=== PATIENT | female | born 1960 | race Caucasian/White ===

== ENCOUNTER 2019-05-05 14:11 | Outpatient (CLI) | payer MEDICARE, OTHER, SELFPAY ==
--- NOTE | 2019-05-05 14:20 | XR_ITS ---
WS: [id number] Bone mineral density performed on a [employer], today. Clinical data: POST MENOPAUSAL OSTEOPOROSIS Comparison study: DEXA scan, 06/08/2014. Findings: The first 4 lumbar vertebral bodies demonstrated the bone mineral density of 1.136 g/cm2 for a young adult T score of -0.4. Measurement of the left hip reveals a bone mineral density of 1.103 g/cm2 with a young adult T score of 0.8. Measurement of the right hip reveals the bone mineral density of 1.048 g/cm2 for young adult T score of 0.3. XR/XR DEXA axial skeleton* [id number] Impression: 1. Normal bone mineral density of the lumbar spine and both hips. 2. Slight decrease in mineralization compared to prior study.
== END 2019-05-05 14:12 | disposition home or self-care (01) ==
LOC: RADWPI 14:18
PROVIDERS: Family Provider Nurse Practitioner; PCP Nurse Practitioner; Referring Provider Nurse Practitioner; Visit Provider Internal Medicine Rheumatology
DX: M81.0 Age-related osteoporosis without current pathological fracture (principal)
CPT/HCPCS: 77080

== ENCOUNTER → 2019-05-11 13:38 | Outpatient (BNVA) | payer MEDICARE, OTHER, SELFPAY | PROVIDERS: Family Provider Nurse Practitioner; PCP Nurse Practitioner; Visit Provider Internal Medicine Rheumatology | DX: M35.3 Polymyalgia rheumatica (principal); Z79.899 Other long term (current) drug therapy; M79.7 Fibromyalgia; M15.4 Erosive (osteo)arthritis; G56.01 Carpal tunnel syndrome, right upper limb; Z79.52 Long term (current) use of systemic steroids | CPT/HCPCS: 36415; 82565; 85025; 85651; 86140; 99213 ==

== ENCOUNTER → 2019-05-27 14:34 | Outpatient (BNVA) | payer MEDICARE, OTHER, SELFPAY | PROVIDERS: Family Provider Nurse Practitioner; PCP Nurse Practitioner; Visit Provider Internal Medicine Rheumatology | DX: M35.3 Polymyalgia rheumatica (principal); Z79.899 Other long term (current) drug therapy | CPT/HCPCS: 85025 ==

== ENCOUNTER 2019-07-09 09:37 | Outpatient (CLI) | payer MEDICARE, OTHER, SELFPAY ==
--- NOTE | 2019-07-09 09:43 | MM_ITS ---
WS: [id number] BILATERAL SCREENING DIGITAL MAMMOGRAM WITH CAD HISTORY: SCREENING COMPARISON: 06/10/2018 and 05/02/2017 Bilateral CC and MLO views submitted. Computer aided detection analyzed. Breast composition: There are scattered areas of fibroglandular density. No suspicious masses, microc alcifications or architectural distortion. Benign calcifications in each breast. MM/[place] [id number] IMPRESSION: BI-RADS: 2-Benign FOLLOW UP: 1 Year Follow-up
== END 2019-07-09 09:38 | disposition home or self-care (01) ==
LOC: RADSHAW 09:39
PROVIDERS: Family Provider Nurse Practitioner; PCP Nurse Practitioner; Visit Provider Nurse Practitioner
DX: Z12.31 Encounter for screening mammogram for malignant neoplasm of breast (principal)
CPT/HCPCS: 77067

== ENCOUNTER 2019-10-27 13:00 | Outpatient (CLI) | payer MEDICARE, OTHER, SELFPAY ==
--- NOTE | 2019-10-27 13:23 | XR_ITS ---
WS: [id number] RIGHT KNEE: 2 VIEW(S) TECHNIQUE: AP and lateral. HISTORY: PAIN IN RIGHT KNEE COMPARISON: 07/02/2018 No fracture or dislocation. No joint space narrowing or osteophytes. No joint effusion. No soft tissue abnormality. XR/XR knee RT 1-2V [id number] IMPRESSION: Normal RIGHT knee.
== END 2019-10-27 13:01 | disposition home or self-care (01) ==
LOC: RADWPI 13:05
PROVIDERS: Family Provider Nurse Practitioner; PCP Nurse Practitioner; Visit Provider Nurse Practitioner Family
DX: M25.561 Pain in right knee (principal); Z79.899 Other long term (current) drug therapy
CPT/HCPCS: 36415; 73560; 80076; 82565; 85025; 85651; 86140

== ENCOUNTER → 2019-11-03 12:49 | Outpatient (BNVA) | payer MEDICARE, OTHER, SELFPAY | PROVIDERS: Family Provider Nurse Practitioner; PCP Nurse Practitioner; Visit Provider Internal Medicine Rheumatology | DX: M35.3 Polymyalgia rheumatica (principal); Z79.899 Other long term (current) drug therapy; M79.7 Fibromyalgia; M15.4 Erosive (osteo)arthritis; M48.02 Spinal stenosis, cervical region; G50.0 Trigeminal neuralgia; Z79.52 Long term (current) use of systemic steroids | CPT/HCPCS: 99214 ==

== ENCOUNTER → 2019-12-23 13:57 | Outpatient (BNVA) | payer MEDICARE, OTHER, SELFPAY | PROVIDERS: Family Provider Nurse Practitioner; PCP Nurse Practitioner; Referring Provider Orthopaedic Surgery; Visit Provider Specialist | DX: M25.561 Pain in right knee (principal); S86.911A Strain of unspecified muscle(s) and tendon(s) at lower leg level, right leg, initial encounter; X58.XXXA Exposure to other specified factors, initial encounter | CPT/HCPCS: 73560; 73565 ==

== ENCOUNTER 2020-01-08 07:58 | Outpatient (CLI) | payer MEDICARE, OTHER, SELFPAY ==
--- NOTE | 2020-01-08 08:00 | MR_ITS ---
WS: [id number] MRI RIGHT KNEE NONCONTRAST TECHNIQUE: Axial PD, coronal PD fat sat, coronal PD, sagittal PD, and sagittal PD fat-sat images obta ined. CLINICAL INFORMATION: S86.911A Strain of unspecified muscle(s) and tendon(s) at... COMPARISON: MRI May 28, 2017 FINDINGS: Normal ACL. Normal PCL. Distal quadriceps and patella tendons are intact. Hypertrophic patella. No ev idence of bone marrow contusion. Hypertrophic patella. Small amount of prepatellar soft tissue edema. 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 Chronic thinn ing of both the medial and lateral meniscus. Moderate chondromalacia patella worse involving the late ral patella facet. No subchondral edema. Medial and lateral patellar retinacula appear intact. Normal popliteal fossa. Medial and lateral collateral ligaments are intact. MR/MR knee RT wo con* [id number] IMPRESSION: 1. Normal anterior and posterior cruciate ligaments. 2. 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 Chronic thinning of the medial and lateral meniscu s. 3. Moderate chondromalacia patella. No subchondral edema. This is worse involv ing the lateral patella facet.
== END 2020-01-08 07:59 | disposition home or self-care (01) ==
LOC: RADSHAW 08:01
PROVIDERS: PCP Nurse Practitioner; Visit Provider Specialist
DX: S86.911A Strain of unspecified muscle(s) and tendon(s) at lower leg level, right leg, initial encounter (principal); X58.XXXA Exposure to other specified factors, initial encounter; M22.41 Chondromalacia patellae, right knee
CPT/HCPCS: 73721

== ENCOUNTER → 2020-02-08 12:54 | Outpatient (BNVA) | payer MEDICARE, OTHER, SELFPAY | PROVIDERS: PCP Nurse Practitioner; Visit Provider Internal Medicine Rheumatology | DX: Z79.899 Other long term (current) drug therapy (principal); M35.3 Polymyalgia rheumatica | CPT/HCPCS: 36415; 80076; 82565; 85025; 85651; 86140; 86235 ==

== ENCOUNTER → 2020-04-07 14:20 | Outpatient (BNVA) | payer MEDICARE, OTHER, SELFPAY | PROVIDERS: PCP Nurse Practitioner; Visit Provider Internal Medicine Rheumatology | DX: M35.3 Polymyalgia rheumatica (principal); Z79.899 Other long term (current) drug therapy; M79.7 Fibromyalgia; M15.4 Erosive (osteo)arthritis; G56.01 Carpal tunnel syndrome, right upper limb | CPT/HCPCS: 80076; 82565; 85025; 86140; 86235; 99214 ==

== ENCOUNTER → 2020-08-31 13:01 | Outpatient (BNVA) | payer MEDICARE, OTHER, SELFPAY | PROVIDERS: PCP Nurse Practitioner; Visit Provider Internal Medicine Rheumatology | DX: M35.3 Polymyalgia rheumatica (principal); Z79.899 Other long term (current) drug therapy; M79.7 Fibromyalgia; M15.4 Erosive (osteo)arthritis; G56.01 Carpal tunnel syndrome, right upper limb | CPT/HCPCS: 20600; 99214; J1030 ==